=== PATIENT | female | born 1965 | race Caucasian/White ===

== ENCOUNTER 2022-01-03 18:00 | Inpatient (IN) ==
[2022-01-03] MEDS ORDERED: Heparin - STEMI 5,000 UNITS/ML 1 ml VIAL IV ONE (18:07)
[2022-01-03] MEDS ORDERED: Heparin 2 UNITS/ML 1000 mls 0 ML IV ONE (18:10)
[2022-01-03] MEDS ORDERED: Heparin DRIP 25,000 UNITS BAG 25,000 UNITS/500 ML BAG IV SCH ×2 (18:15→23:45)
[2022-01-03] MEDS ORDERED: .Amiodarone 24HR ONLY IV Protocol Order Note IV ONE (18:18)
[2022-01-03] MEDS ORDERED: Amiodarone 150 mg IVPREMIX 150 MG/100 ML BAG IV ONE ×2 (18:18)
[2022-01-03] MEDS ORDERED: Heparin 2 UNITS/ML 1000 mls 3,000 ML IV ONE (18:21)
[2022-01-03] MEDS ORDERED: VERAPAMIL 2.5 MG/ML 2 ML VIAL ** 5 mg/2 ml ONE (18:21)
[2022-01-03] MEDS ORDERED: Iohexol 350 (CONTRAST) 100 ML PAK IV ONE ×3 (18:22→20:09)
[2022-01-03] MEDS ORDERED: Lidocaine 1% MPF 5 ML VIAL ONE ×2 (18:22→21:20)
[2022-01-03] MEDS ORDERED: Amiodarone 360 MG IVPREMIX 360 MG/200 ML BAG IV SCH (18:30)
[2022-01-03 18:34] LABS: Hematocrit 48 % (35-47); Hemoglobin 15.2 g/dL (12.0-16.0); Mean Corpuscular HGB Conc 32 g/dL (31-36); Mean Corpuscular Hemoglobin 31 pg (27-31); Mean Corpuscular Volume 99 fL (80-97); Mean Platelet Volume 9.9 fL (7.4-10.4); Platelet Count 210 10^3/uL (150-450); Red Blood Count 4.87 10^6 /uL (3.70-4.87); Red Cell Distribution Width 14 % (10-15); White Blood Count 38.4 10^3/uL (3.5-10.8)
[2022-01-03 18:45] LABS: Activated Partial Thrombo Time 71.2 seconds (26.0-38.0); INR 0.94 (0.89-1.11)
[2022-01-03] MEDS ORDERED: Magnesium Sulfate 2 gm BAG 2 GM/50 ML BAG ONE (18:47)
[2022-01-03] MEDS ORDERED: Bivalirudin 250 MG VIAL ONE (18:56)
[2022-01-03] MEDS ORDERED: Norepinephrine 16MCG/ML BAG NS 4,000 MCG/250 ML BAG IV ONE (19:01)
[2022-01-03] MEDS ORDERED: Eptifibatide IV (Load dose) 2 MG/ML 10 ml VIAL ONE (19:05)
[2022-01-03 19:11] LABS: Albumin 3.6 g/dL (3.2-5.2); Albumin/Globulin Ratio 1.5 (1-3); Calcium 8.6 mg/dL (8.6-10.3); Globulin 2.4 g/dL (2-4); Magnesium 2.9 mg/dL (1.9-2.7); Total Bilirubin 0.4 mg/dL (0.2-1.0); eGFR CKD-EPI 46.1 (>60)
[2022-01-03 19:16] LABS: Potassium 4.4 mmol/L (3.5-5.0)
[2022-01-03 19:54] LABS: ABS Basophils 0.1 10^3/ul (0-0.2); ABS Eosinophils 0.4 10^3/ul (0-0.6); ABS Lymphocytes 14.4 10^3/ul (1.0-4.8); ABS Monocytes 1.3 10^3/ul (0-0.8); ABS Neutrophils 22.2 10^3/ul (1.5-7.7); Lymphocyte % 37.5 %
[2022-01-03] MEDS ORDERED: Furosemide 40 mg/4 ml IV VIAL ONE (20:10)
[2022-01-03] MEDS: Norepinephrine 16MCG/ML BAGD5W 4,000 MCG/250 ML BAG IV SCH (21:10)
[2022-01-03] MEDS ORDERED: Heparin 2 UNITS/ML 1000 mls 2,000 ML IV ONE (21:19)
[2022-01-03] MEDS ORDERED: Heparin 2 UNITS/ML 1000 mls 1,000 ML IV ONE (21:20)
[2022-01-03] MEDS ORDERED: Norepinephrine 16MCG/ML BAGD5W 4,000 MCG/250 ML BAG IV ONE (21:25)
[2022-01-03] MEDS ORDERED: Amiodarone 360 MG IVPREMIX 360 MG/200 ML BAG IV ONE (21:30)
[2022-01-03] MEDS ORDERED: Heparin DRIP 25,000 UNITS BAG 25,000 UNITS/500 ML BAG ONE (21:59)
[2022-01-03 22:56] LABS: Urine Appearance Cloudy; Urine Bilirubin Negative (Negative); Urine Blood 2+ (Negative); Urine Color Yellow; Urine Glucose 3+(>=500 mg/dL) (Negative); Urine Ketones Negative (Negative); Urine Nitrite Negative (Negative); Urine Protein 3+(>=500 mg/dL) (Negative); Urine Specific Gravity 1.014 (1.002-1.030); Urine Urobilinogen Negative (Negative)
[2022-01-03 23:01] LABS: Urine Bacteria 1+ (Absent); Urine Red Blood Cell 3+(>10/hpf) (Absent); Urine Squamous Epithelial Cell Present (Absent); Urine White Blood Cell 2+(11-20/hpf) (Absent)
[2022-01-04] MEDS ORDERED: .Amiodarone 24HR ONLY IV Protocol Order Note IV ONE (00:06)
[2022-01-04] MEDS: Midazolam 50 MG VIAL IV DRIP 50 ML IV SCH ×2 (00:20→12:17)
[2022-01-04] MEDS ORDERED: Amiodarone 360 MG IVPREMIX 360 MG/200 ML BAG IV SCH ×3 (00:20→03:30)
[2022-01-04 00:34] LABS: Hematocrit 46 % (35-47); Hemoglobin 14.8 g/dL (12.0-16.0); Mean Corpuscular HGB Conc 32 g/dL (31-36); Mean Corpuscular Hemoglobin 31 pg (27-31); Mean Corpuscular Volume 98 fL (80-97); Mean Platelet Volume 9.2 fL (7.4-10.4); Platelet Count 306 10^3/uL (150-450); Red Blood Count 4.72 10^6 /uL (3.70-4.87); Red Cell Distribution Width 15 % (10-15); White Blood Count 43.8 10^3/uL (3.5-10.8)
[2022-01-04] MEDS: Norepinephrine 16MCG/ML BAGD5W 4,000 MCG/250 ML BAG IV SCH ×5 (00:46→11:41)
[2022-01-04] MEDS: Propofol 10 mg/ml 100 ML BTL 100 ML IV SCH ×3 (00:48→10:45)
[2022-01-04 01:07] LABS: Albumin 3.5 g/dL (3.2-5.2); Albumin/Globulin Ratio 1.8 (1-3); Alkaline Phosphatase 172 U/L (35-149); Blood Urea Nitrogen 21 mg/dL (6-24); CO2 Carbon Dioxide 16 mmol/L (22-32); Calcium 7.7 mg/dL (8.6-10.3); Chloride 98 mmol/L (101-111); Sodium 133 mmol/L (135-145); Total Protein 5.5 g/dL (6.4-8.9); eGFR CKD-EPI 35.7 (>60)
[2022-01-04 01:24] LABS: ALT 940 U/L (7-52)
[2022-01-04 01:25] LABS: Anion Gap 19 mmol/L (2-11); Glucose 596 mg/dL (70-100)
[2022-01-04] MEDS ORDERED: PHENYLEPHRINE DRIP IVPREMIX 50 MG/250 ML BAG IV SCH (02:00)
[2022-01-04] MEDS ORDERED: Dextrose 50% Syringe 50 ml 25 GM/50 ML SYRINGE IV PUSH PRN (02:15)
[2022-01-04 02:21] LABS: Magnesium 3.4 mg/dL (1.9-2.7); Potassium Redraw 3.5 mmol/L (3.5-5.0)
[2022-01-04 02:35] LABS: ABS Basophils 0.3 10^3/ul (0-0.2); ABS Eosinophils 0.1 10^3/ul (0-0.6); ABS Monocytes 1.6 10^3/ul (0-0.8); ABS Neutrophils 36.8 10^3/ul (1.5-7.7); Eosinophil % 0.2 %; Lymphocyte % 11.5 %; RBC Morphology Normal (Normal)
[2022-01-04] MEDS ORDERED: Norepinephrine 16MCG/ML BAGD5W 4,000 MCG/250 ML BAG IV ONE (04:22)
[2022-01-04] MEDS ORDERED: Lactated Ringers 1000 ml BAG 1,000 ML IV SCH (05:00)
[2022-01-04] MEDS: KCL 20 MEQ/100 ML IVPREMIX 20 MEQ/100 ML BAG IV SCH ×2 (05:13→07:16)
[2022-01-04 06:00] LABS: Albumin 3.4 g/dL (3.2-5.2); Albumin/Globulin Ratio 1.7 (1-3); Alkaline Phosphatase 169 U/L (35-149); Blood Urea Nitrogen 24 mg/dL (6-24); Chloride 99 mmol/L (101-111); Cholesterol 294 mg/dL; Glucose 395 mg/dL (70-100); HDL Cholesterol 26.2 mg/dL; Sodium 135 mmol/L (135-145); Total Protein 5.4 g/dL (6.4-8.9); Triglycerides 500 mg/dL; eGFR CKD-EPI 27.1 (>60)
[2022-01-04 06:18] LABS: LDL Cholesterol Direct 205 mg/dL
[2022-01-04 06:28] LABS: ALT 909 U/L (7-52)
[2022-01-04 06:30] LABS: Anion Gap 24 mmol/L (2-11); CO2 Carbon Dioxide 12 mmol/L (22-32)
[2022-01-04 06:30] LABS: Hematocrit 45 % (35-47); Hemoglobin 14.6 g/dL (12.0-16.0); Mean Corpuscular HGB Conc 32 g/dL (31-36); Mean Corpuscular Hemoglobin 31 pg (27-31); Mean Corpuscular Volume 98 fL (80-97); Mean Platelet Volume 9.2 fL (7.4-10.4); Platelet Count 259 10^3/uL (150-450); Red Blood Count 4.63 10^6 /uL (3.70-4.87); Red Cell Distribution Width 14 % (10-15)
[2022-01-04 07:38] LABS: RBC Morphology Normal (Normal)
[2022-01-04 07:39] LABS: ABS Basophils 0.2 10^3/ul (0-0.2); ABS Eosinophils 0.1 10^3/ul (0-0.6); ABS Monocytes 1.4 10^3/ul (0-0.8); ABS Neutrophils 34.3 10^3/ul (1.5-7.7); ABS Nucleated RBC 0.1 10^3/ul; Eosinophil % 0.1 %; Lymphocyte % 10.1 %; Nucleated Red Blood Cells % 0.1
[2022-01-04] MEDS ORDERED: Furosemide 40 mg/4 ml IV VIAL IV SLOW PU ONE (08:21)
[2022-01-04] MEDS ORDERED: Midazolam 5 mg/5 ml VIAL 1 mg/ml 5 ml VIAL (5 mg) ONE (08:31)
[2022-01-04] MEDS ORDERED: Succinylcholine 200 mg VIAL 20 mg/ml 10 ml VIAL (200 mg) ONE (08:36)
[2022-01-04] MEDS ORDERED: Rocuronium 50 mg VIAL 10 mg/ml 5 ml VIAL (50 mg) ONE (08:36)
[2022-01-04 08:38] LABS: Urine Appearance Turbid; Urine Bilirubin Negative (Negative); Urine Blood 3+ (Negative); Urine Color Amber; Urine Glucose 2+(150 mg/dL) (Negative); Urine Ketones Negative (Negative); Urine Nitrite Negative (Negative); Urine Protein 3+(>=500 mg/dL) (Negative); Urine Urobilinogen Negative (Negative)
[2022-01-04 08:42] LABS: Urine Amorphous Crystals Present (Absent); Urine Bacteria Absent (Absent); Urine Red Blood Cell 3+(>10/hpf) (Absent); Urine Squamous Epithelial Cell Present (Absent); Urine White Blood Cell 3+(>20/hpf) (Absent)
[2022-01-04] MEDS ORDERED: Piperacillin/Tazobac ADVAN 3.375 GM in NS 0.9% 100 ml BAG 100 ML IV ONE (09:04)
[2022-01-04 09:21] LABS: Potassium, Whole Blood 3.9 mmol/L (3.4-4.5)
[2022-01-04] MEDS ORDERED: Midazolam 2 mg/2 ml VIAL 1 mg/ml 2 ml VIAL (2 mg) IV SLOW PU ONE (09:46)
[2022-01-04] MEDS ORDERED: Zosyn per Pharmacy NOTE FOLLOW UP SCH (10:00)
[2022-01-04] MEDS ORDERED: Albuterol/Ipratropium NEB.SOL (2.5/0.5 MG) 3 ML NEB.SOLN INH SCH (10:00)
[2022-01-04 10:13] LABS: Urine Specific Gravity > 1.060 (1.002-1.030)
[2022-01-04 10:43] LABS: Hematocrit 43 % (35-47); Hemoglobin 14.2 g/dL (12.0-16.0); Mean Corpuscular HGB Conc 33 g/dL (31-36); Mean Corpuscular Hemoglobin 32 pg (27-31); Mean Corpuscular Volume 96 fL (80-97); Mean Platelet Volume 8.9 fL (7.4-10.4); Platelet Count 264 10^3/uL (150-450); Red Blood Count 4.52 10^6 /uL (3.70-4.87); Red Cell Distribution Width 14 % (10-15); White Blood Count 33.6 10^3/uL (3.5-10.8)
[2022-01-04 10:44] LABS: ABS Basophils 0.2 10^3/ul (0-0.2); ABS Monocytes 0.5 10^3/ul (0-0.8); ABS Neutrophils 29.8 10^3/ul (1.5-7.7); ABS Nucleated RBC 0.1 10^3/ul; Eosinophil % 0.1 %; Nucleated Red Blood Cells % 0.2
[2022-01-04 11:37] LABS: Albumin 3.1 g/dL (3.2-5.2); Albumin/Globulin Ratio 1.7 (1-3); Alkaline Phosphatase 156 U/L (35-149); Blood Urea Nitrogen 28 mg/dL (6-24); CO2 Carbon Dioxide 18 mmol/L (22-32); Calcium 7.1 mg/dL (8.6-10.3); Chloride 99 mmol/L (101-111); Globulin 1.8 g/dL (2-4); Glucose 394 mg/dL (70-100); Magnesium 2.6 mg/dL (1.9-2.7); Sodium 135 mmol/L (135-145); Total Protein 4.9 g/dL (6.4-8.9)
[2022-01-04 11:52] LABS: Anion Gap 18 mmol/L (2-11)
[2022-01-04 12:06] LABS: ALT 1541 U/L (7-52)
[2022-01-04 12:33] VITALS: BP 107/78
[2022-01-04] MEDS ORDERED: ZOSYN 3.375 GM Q8H per EXTENDED INFUSION IV SCH (13:30)
== END 2022-01-04 13:10 | disposition short-term general hospital (02) | DRG 167 ==
LOC: ED 18:00 → CHICATH 18:30 → ICU 20:07
PROVIDERS: ATTEND Surgery Surgical Critical Care